=== PATIENT | male | born 1955 | race Caucasian/White ===

== ENCOUNTER 2017-04-14 07:52 | Day surgery (SDC) | payer OTHER ==
[~2017-04-14] VITALS: Ht 188 cm; Wt 121.3 kg
[~2017-04-14 07:52] MED LIST: ANTIVERT25 MG PO; ATORVASTATIN CA80 MG PO; DAILY VITAMIN1 EAC4 PO; ENALAPRIL MALEAT5 MG PO; LOPRESSOR50 MG PO; MOTION SICKNESS25 M4 PO; NAPROXEN500 MG PO; NITROSTAT0.4 MG SL; SERTRALINE HCL100 MG PO; ST. JOSEPH ASPI81 MG PO; VALIUM5 MG PO; VIAGRA100 MG PO; ZOFRAN ODT8 MG PO; ZOLOFT25 MG PO
[2017-04-14 08:48] VITALS: BP 133/79
[2017-04-14 14:07] VITALS: BP 123/75
[2017-04-14 16:05] VITALS: BP 125/70
[2017-04-14 20:37] VITALS: BP 112/65
[2017-04-15 00:38] VITALS: BP 90/46
[2017-04-15 04:29] VITALS: BP 97/53
[2017-04-15 07:37] VITALS: BP 106/58
[2017-04-15 11:24] VITALS: BP 118/63
[2017-04-15] MEDS ORDERED: ENDOCET 5-3251 EACH PO (11:58)
[2017-04-15] MEDS ORDERED: ONDANSETRON4 MG/2 ML IV (11:58)
[2017-04-15] MEDS ORDERED: BISACODYL5 MG PO (11:58)
[2017-04-15] MEDS ORDERED: ONDANSETRON4 MG/2 ML PO ×2 (13:26→13:35)
== END 2017-04-15 14:28 | disposition home or self-care (01) ==
LOC: SDC 07:52 → 2SOUTH 12:22 → ENRESERV 12:43 → 3EAST 14:02
PROC: 01NB0ZZ Release Lumbar Nerve, Open Approach (ICD-10-PCS; principal; 2017-04-14)
DX: M48.062 Spinal stenosis, lumbar region with neurogenic claudication (principal); M47.816 Spondylosis without myelopathy or radiculopathy, lumbar region; M51.37 Other intervertebral disc degeneration, lumbosacral region; M47.14 Other spondylosis with myelopathy, thoracic region; M47.12 Other spondylosis with myelopathy, cervical region; R53.1 Weakness; I10 Essential (primary) hypertension; G47.30 Sleep apnea, unspecified; E78.00 Pure hypercholesterolemia, unspecified; Z79.82 Long term (current) use of aspirin
CPT/HCPCS: 72020; 76000; G0378; J0330; J0690; J1100; J1170; J2250; J2405; J3010; J3370; J3480